=== PATIENT | male | born 1990 | race Caucasian/White ===

== ENCOUNTER 2021-12-30 15:54 | Emergency (ER) | payer OTHER ==
[2021-12-30 16:43] LABS: HEMOGLOBIN 14.7 gm/dl (14.0-17.5); RED BLOOD COUNT 5.23 M/UL (4.20-5.50); WHITE BLOOD COUNT 11.1 K/UL (4.5-11.0)
[2021-12-30 17:06] LABS: BUN/CREATININE RATIO 16 (0-10)
== END 2021-12-30 17:21 | disposition home or self-care (01) ==
LOC: ER1 15:54
PROVIDERS: Physician Assistant
DX: R55 Syncope and collapse (principal); R51.9 Headache, unspecified; F17.200 Nicotine dependence, unspecified, uncomplicated; R52 Pain, unspecified; R68.83 Chills (without fever)
CPT/HCPCS: 71045; 80053; 82550; 82553; 83874; 84484; 85025; 93005; 99284